=== PATIENT | male | born 1960 | race Caucasian/White ===

== ENCOUNTER 2021-11-05 16:28 | Inpatient (IN) | payer BC, SELFPAY ==
[2021-11-05] VITALS (18 sets, daily range): BP systolic 100–142; BP diastolic 53–80; PULSE 50–64; RESP 16–20; TEMP 36.1; O2SAT 93–99; BMI 34.0; BMI 30.9
--- NOTE | 2021-11-05 16:24 | IR_ITS ---
APPROVED REPORT Patient Location: Emergent [place] Operator: MIRTHA Hamlin RT (R) PROCEDURES Left heart catheterization Left ventriculogram Selective coronary angiogram Drug-eluting stent deployment to the proximal mid and distal dominant right coronary artery in a contiguous manner INDICATION Acute coronary syndrome, Acute inferior ST elevation myocardial infarction SCAI INDICATION Clinical history: Patient was at [facility] earlier this morning when I was contacted by the hospitalist who described patient is having elevated troponin with dynamic EKG abnormalities in the inferior leads. Patient initially presented with Diagnosis of Covid. The hospitalist described the patient is being stable and suitable for discharge home from a Covid standpoint. Patient was not experiencing any chest pain. Because patient was otherwise asymptomatic it was decided patient will be discharged from [facility] and follow-up directly in my office. Upon arrival to my office patient was experiencing chest pain and A[place] nurse practitioner described the patient is looking toxic diaphoretic. Review of the EKG demonstrated intermittent ST elevation. Because of patient's ongoing chest pain he was immediately brought to the [facility]. Telemetry monitors demonstrated ST elevation on the monitor. Patient was emergently taken to the [facility] and underwent angiography which demonstrated KATIE II flow down massively large dominant right coronary artery with a hazy unstable distal lesion. Because of the positive troponin severe chest pain with ST elevation patient was then treated as an acute inferior ST elevation myocardial infarction. Informed consent was obtained prior to the procedure. COMPLICATIONS NONE Estimated Blood Loss: LESS THAN 10 ML TECHNIQUE One percent lidocaine used to anesthetize the right anterior aspect of the wrist. The right radial artery was accessed via the Seldinger technique. A 6 Austrian sheath was placed in the right radial artery. 2.5 mg of verapamil, 800 mcg of nitroglycerin, 1mg Lidocaine and 5000 U Heparin were given through the arterial sheath. A Poppa catheter was used to perform left heart catheterization left ventriculogram and selective coronary angiogram. Patient was experiencing ST elevation on the monitor during cardiac catheterization. Angiography demonstrated a critical hazy stenosis in the distal right coronary artery accompanied by KATIE II flow. Therapeutic heparin was administered giving a therapeutic ACT and a Choice PT extra-support wire was placed distally. A 4 mm x 38 mm resolute Asa stent could not be delivered due to an eccentric calcified plaque in the proximal segment. Because of this the guide liner telescope was then advanced into the proximal right coronary artery however it too was getting snagged on the eccentric calcified plaque. Both the telescope as well as the 4 mm stent were placed in the vessel with manipulation and torquing of the device which still failed to allow passage of either the telescope or the stent beyond this eccentric calcified lesion. At this point a 3 mm balloon was then placed into the proximal segment and deployed at 12 veronica which then allowed immediate passage of the guide liner distal to the stenosis. A 4 mm x 38 mm resolute Bethel stent was deployed at 20 veronica distally in the critical stenosis. An additional 5 mm x 30 mm resolute Bethel stent was deployed at 20 veronica in the distal right coronary artery which was proximal to the first stent yet still overlapping the proximal segment. An additional 5 mm x 26 mm resolute Asa stent was placed proximal to this in order to reduce the eccentric heavily calcified
[2021-11-05 16:30] LABS: Coronavirus 19, PCR Not Detected (NotDetected); Influenza A, PCR Not Detected (NotDetected); Influenza B, PCR Not Detected (NotDetected)
[2021-11-05 16:33] LABS: CATHL Activated Clotting Time 381 SEC (74-125)
--- NOTE | 2021-11-05 16:46 | PC.NURSE ---
pt arrived to the floor at this time
--- NOTE | 2021-11-05 18:28 | PC.NURSE ---
PRN nitro spray given at 18:29. eMAR will not let RN scan medication. Will contact pharmacy. 3mL attempted to be pulled from TRband but patient bled, 6mL placed back into cuff. Will reassess
[2021-11-06] VITALS (8 sets, daily range): BP systolic 92–107; BP diastolic 41–74; PULSE 50–62; RESP 18–20; TEMP 36.5–37.1; O2SAT 90–97; BMI 30.8
--- NOTE | 2021-11-06 06:45 | PC.NURSE ---
pt rested well through the night, pt with no complaints of pain, right radial dressing cdi, no other issues or concerns noted.
[2021-11-06 06:49] LABS: Basophils % 0.3 % (0.1-2.0); Eosinophils # 0.2 K/mm3 (0.0-0.4); Eosinophils % 1.7 % (0.1-12.0); Hematocrit 35.1 % (42.0-52.0); Hemoglobin 11.1 g/dL (14.1-18.0); Lymphocytes # 1.3 K/mm3 (0.7-4.5); Lymphocytes % 10.9 % (10-50); Mean Corpuscular HGB Conc 31.8 g/dL (31.8-35.4); Mean Platelet Volume 7.7 fl (7.4-10.4); Monocytes # 0.5 K/mm3 (0.1-1.0); Monocytes % 4.3 % (1.7-9.3); Neutrophils # 9.9 K/mm3 (1.8-7.8); Neutrophils % 82.8 % (37.0-80.0); Platelet Count 324 K/mm3 (142-424); Red Blood Count 3.19 M/mm3 (4.60-6.20); Red Cell Distribution Width 13.4 % (11.5-17.5); White Blood Count 11.9 K/mm3 (4.8-10.8)
[2021-11-06 06:56] LABS: Chloride 108 mmol/L (98-107); Sodium 138 mmol/L (136-145)
[2021-11-06 06:57] LABS: Potassium 4.3 mmoL/L (3.5-5.1)
[2021-11-06 06:59] LABS: Anion Gap 8.3 mEq/L (5-15); Blood Urea Nitrogen 20 mg/dl (9-20); Carbon Dioxide 26 mmol/L (22.0-30.0); Creatinine Clearance Estimated 95 mL/min (50-200); Estimated Glomerular Filt Rate 68 ml/min (>60); GFR (African American) 83 ML/MIN (>60)
[2021-11-06 07:00] LABS: Calcium 8.1 mg/dl (8.4-10.2); Glucose 86 mg/dl (74-100)
--- NOTE | 2021-11-06 07:20 | P.CONPHA_ITS ---
[facility] Pharmacy VTE Monitoring - Patient Demographics Admission date: 11/05/21 Report Date: 11/06/21 Time: 07:21 Allergies/Adverse Reactions: Patient Allergies morphine Allergy (Verified 11/05/21 16:32) Height: 1.75 m Weight: 94.4 kg - VTE Risk Labs: VTE Related Lab Results Hgb 11.1 g/dL (14.1-18.0) L 11/06/21 06:09 Hct 35.1 % (42.0-52.0) L 11/06/21 06:09 Plt Count 324 K/mm3 (142-424) 11/06/21 06:09 BUN 20 mg/dl (9-20) 11/06/21 06:09 Creatinine 1.10 mg/dl (0.66-1.25) 11/06/21 06:09 Estimated Creat Clear 95 mL/min (50-200) 11/06/21 06:09 - Prophylaxis VTE Prophylaxis Ordered?: Yes Types of VTE Prophylaxis: TEDS Knee High Location of Applied Device: Bilateral Lower Extremeties
--- NOTE | 2021-11-06 08:05 | HMH.PHAINT ---
MEDICATION RECONCILIATION COMPLETED ON PATIENT USING EXTERNAL FILL HISTORY FROM PHARMACY AND LIST FROM CARDIOLOGY OFFICE. -KELSEY JAVIERD
[2021-11-06 09:00] LABS: Alanine Aminotransferase 10 U/L (12-78); Albumin Level 3.4 g/dl (3.5-5.0); Alkaline Phosphatase 55 U/L (38-126); Aspartate Amino Transferase 25 U/L (17-59); Bilirubin,Direct 0.1 mg/dl (0.0-0.4); Bilirubin,Indirect 0.2 mg/dL (0.0-0.9); Bilirubin,Total 0.3 mg/dl (0.2-1.3); Bilirubin,Unconjugated 0.2 mg/dL (0.0-1.1); Cholesterol 70 mg/dl (140-200); HDL Cholesterol 23 mg/dl (40-60); Total Protein,Serum 6.3 g/dl (6.3-8.2); Triglycerides 82 mg/dl (30-150); VLDL Cholesterol 16 mg/dL (0-40)
[2021-11-06 09:20] LABS: Direct LDL Cholesterol < 30.00 mg/dL (100-129)
--- NOTE | 2021-11-06 10:07 | HMH.PNCARD ---
Subjective Date: 11/06/21 Time: 09:30 Principal diagnosis: nonstemi Interval history: This is a 61-year-old white gentleman who presented to our cardiology clinic yesterday after being admitted at [facility] for chest pain and found to have a non-ST elevation myocardial infarction. His troponin went up to 1471.1 at [facility]. The patient was discharged from [facility] and came to our outpatient clinic. The patient was still having chest pain and shortness of breath so the patient was taken to the cardiac catheterization laboratory and had 4 stents placed to his right coronary artery. This morning he states he had 1 little episode of aching in his chest which resolved with nitro spray. He states that this was not the same pain that he had prior to the left cardiac catheterization. This is most likely from GERD and we will get the patient on a PPI. He denies any shortness of breath or edema. He denies any fever, chills, nausea, vomiting, diarrhea, PND or orthopnea. The patient states that he is ready to go home. [facility] shows: The left main artery Short and normal The left anterior descending artery Has proximal calcified 30% stenoses with mid vessel 30% smooth stenoses The circumflex artery Is a nondominant vessel and has a high ramus intermedius which is moderate in size and widely patent. Distal to the first obtuse marginal artery the second obtuse marginal artery has an 80% stenosis at a 2 mm vessel The right coronary artery Is a massively large dominant vessel and has diffuse calcified complex plaque throughout. Ostially there is a 30 to 40% stenosis with proximal 30% stenoses. There is an additional complex eccentric calcified lesion within a vascular ectatic plaque which is creating a greater than 70% intraluminal stenosis. There is an additional 70% and then complex 80% distal stenosis followed by additional 40 and 50% stenosis immediately proximal to massively large posterior descending and posterior lateral branches The VALENCIA ventriculogram reveals Mildly dilated preserved ejection fraction of 55% with inferior wall hypokinesis The left ventricular end-diastolic pressure 20 mmHg IMPRESSION Critical disease throughout a massively large dominant right coronary artery which was causing elevated troponin as well as intermittent ST elevation Acute inferior ST elevation myocardial infarction successfully treated with 4 contiguous drug-eluting stents reducing the critical disease to 0% Mild left ventricular dilatation with preserved ejection fraction accompanied by regional wall motion abnormality Mildly elevated LVEDP PLAN 1. Plavix 75 mg daily combined with aspirin 81 mg daily 2. LDL 55 to be achieved with high intensity statin 3. Cardiac rehabilitation 4. Avoidance of tobacco products 5. Supportive care for the next 48 hours 6. ORALIA inhibitor's and beta-blockers once hemodynamically stable. Exam Vital signs and Labs for Last 24 Hours: Temp Pulse Resp BP Pulse Ox 98.7 F 59 L 18 103/59 L 96 11/06/21 07:57 11/06/21 07:57 11/06/21 07:57 11/06/21 07:57 11/06/21 07:57 Laboratory Results - last 24 hr 11/05/21 16:15: SARS-CoV-2 (PCR) Not detected, Influenza A Untype (PCR) Not detected, Influenza Type B (PCR) Not detected 11/05/21 16:53: Activated Clotting Time 381 H* 11/06/21 06:09: WBC 11.9 H, RBC 3.19 L, Hgb 11.1 L, Hct 35.1 L, MCV 110.0 H, MCH 35.0 H, MCHC 31.8, RDW 13.4, Plt Count 324, MPV 7.7, Neut % (Auto) 82.8 H, Lymph % (Auto) 10.9, [place] % (Auto) 4.3, Eos % (Auto) 1.7, Baso % (Auto) 0.3, Neut # (Auto) 9.9 H, Lymph # (Auto) 1.3, [place] # (Auto) 0.5, Eos # (Auto) 0.2, Baso # (Auto) 0.0 11/06/21 06:09: Sodium 138, Potassium 4.3, Chloride 108 H, Carbon Dioxide 26, Anion Gap 8.3, BUN 20, Creatinine 1.10, Estimated Creat Clear 95, Estimated GFR 68, Est GFR ( Amer) 83, Glucose 86, Calcium 8.1 L 11/06/21 06:09: Total Bilirubin 0.3, Direct Bilirubin 0.1, Conjugated Bilirubin 0.0, Indirect
--- NOTE | 2021-11-06 12:54 | HMH.DCSUM ---
General - General Admission date:: 11/05/21 Objective Vital signs: Temp Pulse Resp BP Pulse Ox 98.3 F 60 20 101/54 L 97 11/06/21 11:48 11/06/21 11:48 11/06/21 11:48 11/06/21 11:48 11/06/21 11:48 Results Labs on day of discharge: Labs from last 24 hours 11/06/21 11/06/21 11/06/21 06:09 06:09 06:09 WBC 11.9 H RBC 3.19 L Hgb 11.1 L Hct 35.1 L MCV 110.0 H MCH 35.0 H MCHC 31.8 RDW 13.4 Plt Count 324 MPV 7.7 Neut % (Auto) 82.8 H Lymph % (Auto) 10.9 [place] % (Auto) 4.3 Eos % (Auto) 1.7 Baso % (Auto) 0.3 Neut # (Auto) 9.9 H Lymph # (Auto) 1.3 [place] # (Auto) 0.5 Eos # (Auto) 0.2 Baso # (Auto) 0.0 Activated Clotting Time Sodium 138 Potassium 4.3 Chloride 108 H Carbon Dioxide 26 Anion Gap 8.3 BUN 20 Creatinine 1.10 Estimated Creat Clear 95 Estimated GFR 68 Est GFR ( Amer) 83 Glucose 86 Calcium 8.1 L Total Bilirubin 0.3 Direct Bilirubin 0.1 Conjugated Bilirubin 0.0 Indirect Bilirubin 0.2 Unconjugated Bilirubin 0.2 AST 25 ALT 10 L Alkaline Phosphatase 55 Total Protein 6.3 Albumin 3.4 L Triglycerides 82 Cholesterol 70 L LDL Cholesterol Direct < 30.00 L VLDL Cholesterol 16 HDL Cholesterol 23 L Cholesterol/HDL Ratio 3.0 SARS-CoV-2 (PCR) Influenza A Untype (PCR) Influenza Type B (PCR) 11/05/21 11/05/21 16:53 16:15 WBC RBC Hgb Hct MCV MCH MCHC RDW Plt Count MPV Neut % (Auto) Lymph % (Auto) [place] % (Auto) Eos % (Auto) Baso % (Auto) Neut # (Auto) Lymph # (Auto) [place] # (Auto) Eos # (Auto) Baso # (Auto) Activated Clotting Time 381 H* Sodium Potassium Chloride Carbon Dioxide Anion Gap BUN Creatinine Estimated Creat Clear Estimated GFR Est GFR ( Amer) Glucose Calcium Total Bilirubin Direct Bilirubin Conjugated Bilirubin Indirect Bilirubin Unconjugated Bilirubin AST ALT Alkaline Phosphatase Total Protein Albumin Triglycerides Cholesterol LDL Cholesterol Direct VLDL Cholesterol HDL Cholesterol Cholesterol/HDL Ratio SARS-CoV-2 (PCR) Not detected Influenza A Untype (PCR) Not detected Influenza Type B (PCR) Not detected DS: Diagnosis - Discharge Diagnosis (1) NSTEMI (non-ST elevated myocardial infarction) Status: Acute (2) CAD (coronary artery disease) Status: Chronic (3) Elevated troponin Status: Acute (4) GERD (gastroesophageal reflux disease) Status: Acute (5) Tobacco dependence syndrome Status: Chronic (6) Dyspnea Status: Acute Discharge Plan - Patient Discharge Instructions Patient Instructions: Heart Attack, Coronary Artery Disease, Cardiac Catheterization, DI for Cardiac Catheterization, DI for Surgical Site Infection, Surgical Site Infection, DI for Coronary Artery Disease - Follow up Plan Home Medications: Home Medications Medication Instructions Recorded Confirmed Type atorvastatin 80 mg tablet 80 mg PO HS 11/05/21 11/06/21 History carvedilol 3.125 mg tablet 3.125 mg PO BID 11/05/21 11/06/21 History levothyroxine 150 mcg capsule 150 mcg PO DAILY 11/05/21 11/06/21 History lisinopril 10 mg tablet 10 mg PO DAILY 11/05/21 11/06/21 History Clopidogrel Bisulfate [Clopidogrel 75 mg PO DAILY 11/06/21 11/06/21 History 75mg Tab] Cyanocobalamin (Vitamin B-12) 1 tab PO DAILY 11/06/21 11/06/21 History [Vitamin B-12 1000mcg Tablet] Folic Acid [Folic Acid 1mg tablet] 1 mg PO DAILY 11/06/21 11/06/21 History Prescriptions/Medication Reconciliation: No Action atorvastatin 80 mg tablet 80 mg PO HS carvedilol 3.125 mg tablet 3.125 mg PO BID levothyroxine 150 mcg capsule 150 mcg PO DAILY lisinopril 10 mg tablet 10 mg PO DAILY Clopidogrel Bisulfate [Clopidogrel 75mg Tab] 75 mg PO DAILY Cyanocobalamin (V
--- NOTE | 2021-11-06 12:56 | HMH.HPDC ---
General - General Admission date:: 11/05/21 Discharge date: 11/06/21 *Admission Date: 11/05/21 *Chief complaint: chest pain *History of present illness: 61-year-old white gentleman who presented to our cardiology clinic yesterday after being admitted at [facility] for chest pain and found to have a non-ST elevation myocardial infarction. His troponin went up to 1471.1 at [facility]. The patient was discharged from [facility] and came to our outpatient clinic. The patient was still having chest pain and shortness of breath so the patient was taken to the cardiac catheterization laboratory and had 4 stents placed to his right coronary artery. This morning he states he had 1 little episode of aching in his chest which resolved with nitro spray. He states that this was not the same pain that he had prior to the left cardiac catheterization. This is most likely from GERD and we will get the patient on a PPI. He denies any shortness of breath or edema. He denies any fever, chills, nausea, vomiting, diarrhea, PND or orthopnea. per cardiology [facility] History I have reviewed the patient's past medical history: Yes Medical History: Reports:: Coronary Artery Disease, Gastroesophageal Reflux Disease(GERD), Hypertension *Have you ever received a pneumonia vaccine?: No *Have you received a flu vaccine this season?: No - *Social History Smoking Status: Current every day smoker Tobacco Type: cigarettes # Packs/Day (cigarettes): 1 Alcohol Intake: never Alcohol Intake Frequency:: holidays/special occasions only Substance Use Type: marijuana *Occupational Status:: other Household Members: spouse *Travel in the last 8 weeks: None Family Hx:: No significant family history Review of Systems - Review of Systems Review of systems:: pertinent systems reviewed and negative unless documented below - Constitutional Denies body ache(s), Denies fatigue - Eyes Denies discharge - ENT Denies bleeding gums - *Cardiovascular Reports chest pain, Reports chest pain at rest, Reports chest pain with activity, Reports shortness of breath with activity - *Respiratory Denies cough - *Gastrointestinal Denies abdominal pain - *Genitourinary Denies difficulty urinating - *Musculoskeletal Denies abnormal walking - Integumentary/Breasts Denies acne - *Neurologic Denies abnormal walking - Psychiatric Denies lack of enjoyment - Endocrine Denies excessive sweating - Hematologic/Lymphatic Denies easy bruising - Allergic/Immunologic Denies itchy eyes Exam Vital signs and Labs for Last 24 Hours: Temp Pulse Resp BP Pulse Ox 98.3 F 60 20 101/54 L 97 11/06/21 11:48 11/06/21 11:48 11/06/21 11:48 11/06/21 11:48 11/06/21 11:48 Laboratory Results - last 24 hr 11/05/21 16:15: SARS-CoV-2 (PCR) Not detected, Influenza A Untype (PCR) Not detected, Influenza Type B (PCR) Not detected 11/05/21 16:53: Activated Clotting Time 381 H* 11/06/21 06:09: WBC 11.9 H, RBC 3.19 L, Hgb 11.1 L, Hct 35.1 L, MCV 110.0 H, MCH 35.0 H, MCHC 31.8, RDW 13.4, Plt Count 324, MPV 7.7, Neut % (Auto) 82.8 H, Lymph % (Auto) 10.9, [place] % (Auto) 4.3, Eos % (Auto) 1.7, Baso % (Auto) 0.3, Neut # (Auto) 9.9 H, Lymph # (Auto) 1.3, [place] # (Auto) 0.5, Eos # (Auto) 0.2, Baso # (Auto) 0.0 11/06/21 06:09: Sodium 138, Potassium 4.3, Chloride 108 H, Carbon Dioxide 26, Anion Gap 8.3, BUN 20, Creatinine 1.10, Estimated Creat Clear 95, Estimated GFR 68, Est GFR ( Amer) 83, Glucose 86, Calcium 8.1 L 11/06/21 06:09: Total Bilirubin 0.3, Direct Bilirubin 0.1, Conjugated Bilirubin 0.0, Indirect Bilirubin 0.2, Unconjugated Bilirubin 0.2, AST 25, ALT 10 L, Alkaline Phosphatase 55, Total Protein 6.3, Albumin 3.4 L, Triglycerides 82, Cholesterol 70 L, LDL Cholesterol Direct < 30.00 L, VLDL Cholesterol 16, HDL Cholesterol 23 L, Cholesterol/HDL Ratio 3.0 I & O for Last 24 hours: Intake & Output 11/04/21 11/05/21 11/06/21 11/07/21 11:59 11:59 11:59 11
--- NOTE | 2021-11-06 13:53 | HMH.PHACLD ---
Alfredito Banuelos has received discharge medication counseling on the following medications: -ASA -PLAVIX -ATORVASTATIN -CARVEDILOL -STOP THE LISINOPRIL
== END 2021-11-06 14:30 | disposition home or self-care (01) | DRG 247 ==
LOC: 2ND 16:28
PROVIDERS: Internal Medicine; Nurse Practitioner Family; Admitting Provider Emergency Medicine; PCP Internal Medicine; Visit Provider Emergency Medicine
PROC: 027035Z Dilation of Coronary Artery, One Artery with Two Drug-eluting Intraluminal Devices, Percutaneous Approach (ICD-10-PCS; principal; 2021-11-05 15:00)
DX: I21.19 ST elevation (STEMI) myocardial infarction involving other coronary artery of inferior wall (principal); I25.110 Atherosclerotic heart disease of native coronary artery with unstable angina pectoris; F17.210 Nicotine dependence, cigarettes, uncomplicated; Z86.16 Personal history of COVID-19; Z71.6 Tobacco abuse counseling; Z95.5 Presence of coronary angioplasty implant and graft; K21.9 Gastro-esophageal reflux disease without esophagitis; I10 Essential (primary) hypertension; Z20.822 Contact with and (suspected) exposure to COVID-19
CPT/HCPCS: 36415; 80048; 80061; 80076; 85025; 85347; 92941; 93458; 99152; 99153; C1725; C1769; C1876; C9606; C9803; J1644; Q9967; U0003; U0005

== ENCOUNTER 2021-11-13 12:53 | Outpatient (RCR) | payer BC, SELFPAY | END 2022-02-04 13:41 | disposition home or self-care (01) | LOC: PT 12:53 | PROVIDERS: Visit Provider Internal Medicine | DX: I25.10 Atherosclerotic heart disease of native coronary artery without angina pectoris (principal); Z95.5 Presence of coronary angioplasty implant and graft | CPT/HCPCS: 93798 ==